=== PATIENT | female | born 1970 | race Two or more races ===

== ENCOUNTER 2021-03-14 19:21 | Emergency (ER) | payer OTHER ==
[~2021-03-14] VITALS: Ht 162.6 cm; Wt 82.1 kg
[2021-03-14] MEDS ORDERED: ULTRACET PO (21:15)
[2021-03-14] MEDS ORDERED: MEDROLPACK PO (21:15)
== END 2021-03-14 21:41 | disposition home or self-care (01) ==
LOC: ER 19:21
DX: M75.30 Calcific tendinitis of unspecified shoulder (principal)